=== PATIENT | male | born 1965 ===

== ENCOUNTER 2019-02-23 06:51 | Day surgery (SDC) | payer BC ==
[~2019-02-23] VITALS: Ht 175.3 cm; Wt 95.3 kg
[~2019-02-23 06:51] MED LIST: FLUO10 PO
== END 2019-02-23 09:09 | disposition home or self-care (01) ==
LOC: ORSCSDS 06:51
PROVIDERS: Internal Medicine Gastroenterology
PROC: 0DJD8ZZ Inspection of Lower Intestinal Tract, Via Natural or Artificial Opening Endoscopic (ICD-10-PCS; principal; 2019-02-23 08:00)
DX: Z12.11 Encounter for screening for malignant neoplasm of colon (principal)
CPT/HCPCS: J0330; J0461; J2405; J2704; J7120